=== PATIENT | male | born 1960 | race Caucasian/White ===

== ENCOUNTER → 2016-10-24 | Outpatient (REF) | LOC: WSOH 14:45 | DX: Z01.89 Encounter for other specified special examinations (principal) ==

== ENCOUNTER 2019-01-14 08:03 | Outpatient (CLI) | payer BC ==
--- NOTE | 2019-01-11 12:33 | NUR ---
pt did not answer. left msg on phone to call back. also left phone number
[~2019-01-14] VITALS: Ht 170.2 cm; Wt 67.8 kg
[2019-01-14] VITALS (7 sets, daily range): BP systolic 113–137; BP diastolic 61–79; PULSE 46–66; TEMP 97.2
--- NOTE | 2019-01-14 08:50 | NUR ---
Pt to [facility] 10 per cart s/p LP. Pt resting well, at bedside.
[2019-01-14 09:44] LABS: GLUCOSE,CSF 53 mg/dL (40-70); TOTAL PROTEIN,CSF 64 mg/dL (15-45)
--- NOTE | 2019-01-14 10:10 | NUR ---
Pt has ambulated, voided and parvin PO intake s n/v.
--- NOTE | 2019-01-14 10:20 | NUR ---
Pt discharged per ambulation with nurse and .
[2019-01-14 10:36] LABS: CSF APPEARANCE CLEAR; CSF COLOR COLORLESS; CSF MONONUCLEAR 100 % (70-100); CSF POLYMORPHONUCLEAR 0 % (0-6); CSF RBC 38 /mm3 (0-0)
== END 2019-01-14 11:02 | disposition home or self-care (01) ==
LOC: COL.RAD 08:03
PROVIDERS: Internal Medicine
DX: H47.10 Unspecified papilledema (principal); H53.9 Unspecified visual disturbance